=== PATIENT | female | born 1945 | race Caucasian/White ===

== ENCOUNTER → 2018-08-11 | Outpatient (CLI) | payer OTHER | LOC: M.RAD 07-29 12:58 | DX: Z12.31 Encounter for screening mammogram for malignant neoplasm of breast (principal); M85.851 Other specified disorders of bone density and structure, right thigh; M85.852 Other specified disorders of bone density and structure, left thigh; Z88.8 Allergy status to other drugs, medicaments and biological substances; Z78.0 Asymptomatic menopausal state ==

== ENCOUNTER → 2019-09-22 | Outpatient (CLI) | payer MEDICARE | LOC: M.MRI 11:30 | DX: I67.82 Cerebral ischemia (principal); B02.29 Other postherpetic nervous system involvement; R41.3 Other amnesia; R51 Headache ==

== ENCOUNTER → 2020-07-17 | Outpatient (CLI) | payer OTHER | LOC: M.RAD 13:35 | PROVIDERS: ATTEND Registered Nurse Diabetes Educator | DX: R51.9 Headache, unspecified (principal); T14.8XXA Other injury of unspecified body region, initial encounter; W19.XXXA Unspecified fall, initial encounter ==

== ENCOUNTER → 2020-07-29 | Outpatient (CLI) | payer OTHER ==
--- NOTE | 2020-07-29 10:03 | 2DMMODE ---
[place] [address] 2 D/M-MODE ECHOCARDIOGRAM Name: SARA STRATTON Kat Room: [facility]#: [id number] Admission: 07/29/20 Attend Phys: RHONDA Preston Discharge: Date of : 43 Date of Service: 07/29/20 1002 Report #: [id number] THIS REPORT FOR: cc: Kayla Shine Tammy RNP Blick, David R. MD [facility] ~ APPROVED REPORT Study performed: 07/29/2020 07:49:48 EXAM: Comprehensive 2D, Doppler, and color-flow Echocardiogram Patient Location: Out-Patient BSA: 1.82 HR: 68 bpm BP: 122/80 mmHg Other Information Study Quality: Good Indications Hypertension/HDD 2D Dimensions IVSd: 11.05 (7-11mm) LVOT Diam: 20.11 (18-24mm) LVDd: 41.93 mm PWd: 10.16 (7-11mm) Ascending Ao: 31.44 (22-36mm) LVDs: 24.48 (25-40mm) Aortic Root: 22.44 mm Volumes Left Atrial Volume (Systole) LA ESV Index: 18.40 mL/m2 Aortic Valve AoV Peak Jacob.: 1.52 m/s AO Peak Gr.: 9.19 mmHg LVOT Max P.73 mmHg AO Mean Gr.: 5.09 mmHg LVOT Mean P.53 mmHg LVOT Max V: 1.20 m/s AO V2 VTI: 34.66 cm LVOT Mean V: 0.72 m/s ELISA (VTI): 2.33 cm2 LVOT V1 VTI: 25.45 cm Mitral Valve E/A Ratio: 1.18 [place] [address] 2 D/M-MODE ECHOCARDIOGRAM Name: SARA STRATTON Room: [facility]#: [id number] Admission: 07/29/20 Attend Phys: RHONDA Preston Discharge: Date of : 43 Date of Service: 07/29/20 1002 Report #: [id number] MV Decel. Time: 198.91 ms MV E Max Jacob.: 0.73 m/s MV PHT: 57.68 ms MVA (PHT): 3.81 cm2 TDI E/Lateral E': 9.13 E/Medial E': 6.64 Medial E' Jacob.: 0.11 m/s Lateral E' Jacob.: 0.08 m/s Pulmonary Valve PV Peak Jacob.: 0.92 m/s PV Peak Gr.: 3.36 mmHg Tricuspid Valve RAP Estimate: 5.00 mmHg TR Peak Gr.: 25.60 mmHg RVSP: 30.60 mmHg PA Pressure: 30.60 mmHg Left Ventricle The left ventricle is normal size. There is normal LV segmental wall motion. There is normal left ventricular wall thickness. Left ventricular systolic function is normal. The left ventricular ejection fraction is within the normal range. LVEF is 55-60%. The left ventricular diastolic function is normal. Right Ventricle The right ventricle is normal size. The right ventricular systolic function is normal. Atria The left atrium size is normal. The right atrium size is normal. Aortic Valve Mild aortic valve sclerosis. No aortic regurgitation is present. There is no aortic valvular stenosis. Mitral Valve Mild mitral annular calcification. Trace mitral regurgitation. No evidence of mitral valve stenosis. Tricuspid Valve The tricuspid valve is normal in structure. Mild tricuspid regurgitation[place] [address] 2 D/M-MODE ECHOCARDIOGRAM Name: SARA STRATTON Room: [facility]#: [id number] Admission: 07/29/20 Attend Phys: RHONDA Preston Discharge: Date of : 43 Date of Service: 07/29/20 [facility] Report #: [id number] The pulmonary valve is normal in structure. Mild pulmonic regurgitation. Great Vessels The aortic root is normal in size. IVC is normal in size and collapses >50% with inspiration. Pericardium There is no pericardial effusion. <Conclusion> LVEF is 55-60%. Mild aortic valve sclerosis. <ELECTRONICALLY SIGNED> By: Bobby Bernal MD, FACC 07/29/20 1002 1002 1002 Bobby Bernal MD, FACC /INF
== END ==
LOC: M.CRD 07-19 11:17
PROVIDERS: ATTEND Registered Nurse Diabetes Educator
DX: M51.37 Other intervertebral disc degeneration, lumbosacral region (principal); M48.061 Spinal stenosis, lumbar region without neurogenic claudication; G89.29 Other chronic pain; E11.40 Type 2 diabetes mellitus with diabetic neuropathy, unspecified; I10 Essential (primary) hypertension; M47.816 Spondylosis without myelopathy or radiculopathy, lumbar region; M51.34 Other intervertebral disc degeneration, thoracic region; M48.04 Spinal stenosis, thoracic region; I08.8 Other rheumatic multiple valve diseases

== ENCOUNTER → 2020-11-22 | Outpatient (CLI) | payer OTHER | END | disposition home or self-care (01) | LOC: M.RAD 12:50 | PROVIDERS: ATTEND Registered Nurse Diabetes Educator | DX: J44.9 Chronic obstructive pulmonary disease, unspecified (principal); R53.83 Other fatigue ==

== ENCOUNTER → 2020-12-10 | Outpatient (CLI) | payer OTHER ==
--- NOTE | 2020-12-24 14:51 | PF ---
[address] [address] PULMONARY FUNCTION REPORT Name: SARA STRATTON Room: [facility]#: [id number] Admission: 12/10/20 Attend Phys: RHONDA Preston Discharge: Date of : 43 Report #: [id number] THIS REPORT FOR: cc: Kayla Shine,Tom Grayson MD ~ DATE OF VISIT: 12/10/2020 The FEV1/FVC ratio is normal at 79% with an FVC normal at 85%. The FEV1 is normal at 90%. The FEF 25-75 is normal at 74%. After the administration of a bronchodilator, there is no significant increase in any of these values. The patient's FEV1 is noted to be 1.68 liters. This does not increase after the administration of a bronchodilator. FLOW VOLUME LOOP: Concave upwards. LUNG VOLUMES: The total lung capacity is normal at 83% with residual volume normal at 80%. DIFFUSION CAPACITY: The DLCO as adjusted for hemoglobin is decreased to 66%. IMPRESSION: 1. The spirometry is normal, but the flow volume loop is concave upwards. This could be a normal variant or could represent minimal obstruction. Clinical correlation advised. 2. Normal lung volumes. 3. The DLCO adjusted for hemoglobin is decreased to 66%. <ELECTRONICALLY SIGNED> By: Tom Cortes MD 12/24/20 [id number] nicholas Bautista
== END ==
LOC: M.PUL 09:00
PROVIDERS: ATTEND Registered Nurse Diabetes Educator
DX: J44.9 Chronic obstructive pulmonary disease, unspecified (principal)

== ENCOUNTER → 2021-05-28 | Outpatient (CLI) | payer OTHER ==
[2021-05-28 14:15] LABS: ABSOLUTE BASOPHILS 0.1 thou/uL (0.0-0.2); ABSOLUTE EOSINOPHILS 0.1 thou/uL (0.0-0.7); ABSOLUTE LYMPHOCYTES 2.2 thou/uL (0.8-5.3); ABSOLUTE MONOCYTES 0.7 thou/uL (0.0-1.2); ABSOLUTE NEUTROPHILS 4.9 thou/uL (1.6-8.1); BASOPHILS 0.8 %; EOSINOPHILS 1.8 %; HEMATOCRIT 36.8 % (37.0-47.0); HEMOGLOBIN 12.1 gm/dL (12.0-15.0); LYMPHOCYTES 27.1 %; MCH 28.5 pg (26.0-34.0); MCHC 32.9 g/dL (28.0-37.0); MCV 86.6 fL (80.0-100.0); MONOCYTES 8.7 %; MPV 8.1 fl. (7.2-11.1); NUCLEATED RBCS 0 /100WBC; PLATELET COUNT* 273 thou/uL (150-400); POLYS 61.6 %; RBC 4.25 mil/uL (4.20-5.00); RDW-CV 14.6 % (10.5-14.5)
[2021-05-28 14:34] LABS: ALBUMIN 3.6 g/dL (3.4-5.0); CALCIUM 8.9 mg/dL (8.5-10.1); CREATININE 0.9 mg/dL (0.6-1.3); DIRECT BILIRUBIN 0.1 mg/dL (<0.1-0.3); POTASSIUM 4.1 mmol/L (3.5-5.1); TOTAL BILIRUBIN 0.4 mg/dL (<0.1-1.0); TOTAL PROTEIN 7.1 g/dL (6.4-8.2)
== END ==
LOC: M.CT 13:30
PROVIDERS: ATTEND Registered Nurse Diabetes Educator
DX: I72.2 Aneurysm of renal artery (principal); K57.30 Diverticulosis of large intestine without perforation or abscess without bleeding; M25.78 Osteophyte, vertebrae; I70.8 Atherosclerosis of other arteries; R19.7 Diarrhea, unspecified; R19.6 Halitosis; Z79.899 Other long term (current) drug therapy; Z90.49 Acquired absence of other specified parts of digestive tract